=== PATIENT | female | born 1970 | race Caucasian/White ===

== ENCOUNTER 2024-01-10 05:12 | Day surgery (SDC) | payer MEDICAID ==
[2024-01-10] MEDS ORDERED: ANESTHESIA TRAY IN PYXIS 1 EA TRAY MC ONE (06:04)
[2024-01-10] MEDS ORDERED: BUPIVACAINE 0.5 % PF 150 MG/30 ML VIAL ONE (06:04)
[2024-01-10] MEDS ORDERED: ROPIVACAINE HCL 0.5% 5 MG/ML 30ML VIAL ONE ×3 (06:15→06:25)
[2024-01-10] MEDS ORDERED: FENTANYL PF 100MCG/2ML AMPUL ONE (06:25)
[2024-01-10 06:26] LABS: PREGNANCY TEST URINE QUAL NEGATIVE (NEGATIVE)
[2024-01-10] MEDS ORDERED: TRANEXAMIC ACID 1,000 MG/10 ML VIAL ONE (06:26)
[2024-01-10] MEDS ORDERED: KETAMINE HCL (500MG/10ML) 50 MG/ML VIAL ONE (06:26)
[2024-01-10] MEDS ORDERED: FAMOTIDINE/PF INJ 20 MG/2 ML VIAL IV ONE (06:26)
== END 2024-01-10 09:00 | disposition home or self-care (01) ==
LOC: DS 05:12
PROVIDERS: ATTEND Specialist
DX: S83.241A Other tear of medial meniscus, current injury, right knee, initial encounter (principal); M94.261 Chondromalacia, right knee; X58.XXXA Exposure to other specified factors, initial encounter; Y93.89 Activity, other specified; Y92.89 Other specified places as the place of occurrence of the external cause; Y99.8 Other external cause status
CPT/HCPCS: 29881; 84703; A4217; A4223; J0690; J1100; J2405; J2704; J2765; J2795; J3010; J3490